=== PATIENT | female | born 1930 | race Caucasian/White ===

== ENCOUNTER 2020-04-13 19:35 | Emergency (ER) | payer MEDICARE, OTHER ==
[2020-04-13] MEDS ORDERED: NORMAL SALINE 1000 ML 1,000 ML IV ONE (20:56)
--- NOTE | 2020-04-13 21:00 | EKG REPORT ---
SEVERITY:- NORMAL ECG - SINUS RHYTHM : Confirmed by: Usman Gary MD 13-Apr-2020 20:59:19
--- NOTE | 2020-04-13 21:02 | ER Document Report ---
ED Fall - General Chief Complaint: Fall Injury Stated Complaint: BUTTOCK PAIN Time Seen by Provider: 04/13/20 20:30 Mode of Arrival: Medic Information source: Patient, Relative - Daughter Notes: 89-year-old female patient who lives home alone presenting to the emergency department after having recurrent falls. Patient's daughter reports she is fallen every day for the last 4 days. She reports over the last 2 weeks she has had increasing confusion and has had hallucinations. Patient denies any of this. Patient is alert and oriented x4. Patient does endorse falls but states that she has a history of severe vertigo secondary to a stroke and has dizzy spells where she knows she is about to fall and then falls. She is followed by a physician at [facility] in [place]. Patient denies any cough, congestion, fever, chills, nausea, vomiting diarrhea. She is complaining of bilateral hip pain and pain in the low back near her coccyx. Patient ambulates at home independently and occasionally uses a cane. - Related data Allergies/Adverse Reactions: No Known Allergies Allergy (Unverified 04/13/20 19:45) Past Medical History - General Information source: Patient, Relative - Daughter - Social History Smoking Status: Never Smoker Chew tobacco use (# tins/day): No Frequency of alcohol use: None Drug Abuse: None Family History: Reviewed & Not Pertinent Patient has homicidal ideation: No - Past Medical History Cardiac Medical History: Reports: Hx Atrial Fibrillation EENT Medical History: Reports: Other - vertigo Review of Systems - Review of Systems Musculoskeletal: See HPI Neurological/Psychological: Confusion - per daughter, Hallucinations - per daughter, Headaches Physical Exam - Vital signs Vitals: Resp BP Pulse Ox 19 138/68 H 93 04/13/20 19:56 04/13/20 19:56 04/13/20 19:56 - Notes Notes: PHYSICAL EXAMINATION: GENERAL: Appears to be stated age, no acute distress noted. HEAD: Atraumatic, normocephalic. EYES: Pupils equal round and reactive to light, extraocular movements intact, conjunctiva are normal. ENT: Nares patent, oropharynx clear without exudates. Moist mucous membranes. NECK: Normal range of motion, supple without lymphadenopathy LUNGS: Breath sounds clear to auscultation bilaterally and equal. No wheezes rales or rhonchi. HEART: Regular rate and rhythm without murmurs ABDOMEN: Soft, nontender, nondistended abdomen. No guarding, no rebound. No masses appreciated. Female : No CVA tenderness Musculoskeletal: Normal range of motion, no pitting or edema. No cyanosis. Pelvis appears stable, no pain with palpation. NEUROLOGICAL: Cranial nerves grossly intact. Normal speech. Normal sensory, motor exams PSYCH: Normal mood, normal affect. SKIN: Warm, Dry, normal turgor, no rashes or lesions noted. Course - Re-evaluation Re-evalutation: Patient appears well, nontoxic. She is alert, oriented and answering all questions appropriately. Her imaging work-up today has been unremarkable. Labs and urine reassuring. We attempted to have her walk around the emergency department prior to discharge. The patient declined to do this stating that she knows her knees will give out and she will fall. Her daughter is at the bedside providing history. Her daughter states that she is not safe at home anymore, she has had recurrent falls over the last 4 days. Her daughter further states that she has been having hallucinations of people in her home that are not there. She also apparently has a firearm in the home and has threatened to shoot people. Patient denies any suicidal or homicidal ideations. She is medically cleared at this time. Since patient is unable to get up and ambulate around the room we will hold her here as a social hold, we will have her be seen by social work and mental health to evaluate for these apparent hallucinations and also to assess if there are any social or discharge needs such as home health versus placement. Patient is agreeable to stay in the emergency department to see the vacation planner tomorrow. - Vital Signs Vital signs: Temp Pulse Resp BP Pulse Ox 98.3 F 15 145/85 H 94 04/13/20 20:31 04/13/20 23:00 04/13/20 21:01 04/13/20 23:00 - Laboratory Result Diagrams: 04/13/20 20:05 04/13/20 20:05 Laboratory results interpreted by me: 04/13/20 04/13/20 04/13/20 20:05 20:05 21:05 RDW 16.3 H Lymph % (Auto) 10.1 L Seg Neutrophils % 78.2 H BUN 22 H Creatinine 1.26 H Est GFR ( Amer) 48 L Est GFR (MDRD) Non-Af 40 L Total Protein 5.8 L Albumin 3.3 L Urine Protein 100 H Urine Glucose (UA) 50 H Urine Ketones 20 H Urine Blood SMALL H Urine Bilirubin SMALL H Urine Urobilinogen 4.0 H Discharge - Discharge Clinical Impression: Recurrent falls while walking, Dizziness Condition: Stable Disposition: HOME, SELF-CARE
[2020-04-13 21:10] LABS: ABSOLUTE BASOPHILS # (AUTO) 0.1 10^3/uL (0.0-0.2); ABSOLUTE EOSINOPHILS # (AUTO) 0.1 10^3/uL (0.0-0.6); ABSOLUTE LYMPHOCYTES (AUTO) 0.9 10^3/uL (0.5-4.7); ABSOLUTE MONOCYTES (AUTO) 0.9 10^3/uL (0.1-1.4); BASOPHILS % (AUTO) 0.7 % (0-2); HEMATOCRIT 39.1 % (36.0-47.0); HEMOGLOBIN 12.8 g/dL (12.0-15.5); LYMPHOCYTES % (AUTO) 10.1 % (13-45); MEAN CORPUSCULAR HEMOGLOBIN 27.1 pg (27.0-33.4); MEAN CORPUSCULAR HGB CONC 32.8 g/dL (32.0-36.0); MEAN CORPUSCULAR VOLUME 83 fl (80-97); PLATELET COUNT 155 10^3/uL (150-450); RED BLOOD COUNT 4.73 10^6/uL (3.72-5.28); RED CELL DISTRIBUTION WIDTH 16.3 % (11.5-14.0); SEGMENTED NEUTROPHILS % (AUTO) 78.2 % (42-78); TOTAL CELLS COUNTED % (AUTO) 100 %; WHITE BLOOD COUNT 8.9 10^3/uL (4.0-10.5)
[2020-04-13 21:12] LABS: ALBUMIN 3.3 g/dL (3.5-5.0); ALKALINE PHOSPHATASE 78 U/L (38-126); ANION GAP 5 (5-19); ASPARTATE AMINO TRANSFERASE 20 U/L (14-36); BILIRUBIN,DIRECT 0.1 mg/dL (0.0-0.4); BILIRUBIN,TOTAL 0.9 mg/dL (0.2-1.3); BLOOD UREA NITROGEN 22 mg/dL (7-20); CALCIUM 8.8 mg/dL (8.4-10.2); CARBON DIOXIDE 26 mmol/L (22-30); CHLORIDE 106 mmol/L (98-107); GLUCOSE 109 mg/dL (75-110); POTASSIUM 4.1 mmol/L (3.6-5.0); TOTAL PROTEIN 5.8 g/dL (6.3-8.2)
[2020-04-13 21:18] LABS: APPEARANCE,URINE SLIGHTLY-CLOUDY; BILIRUBIN,URINE SMALL (NEGATIVE); COLOR,URINE AMBER; GLUCOSE, URINE 50 mg/dL (NEGATIVE); KETONES,URINE 20 mg/dL (NEGATIVE); LEUKOCYTE ESTERASE,URINE NEGATIVE (NEGATIVE); NITRITE,URINE NEGATIVE (NEGATIVE); PROTEIN,URINE 100 mg/dL (NEGATIVE); URINE SPECIFIC GRAVITY 1.028
--- NOTE | 2020-04-13 21:35 | RADIOLOGY REPORT (SQ) ---
EXAM DESCRIPTION: CT HEAD WITHOUT IV CONTRAST, CT CERVICAL SPINE WITHOUT IV CONTRAST COMPLETED DATE/TME: 04/13/2020 21:00 CLINICAL HISTORY: 89 years, Female, fall This exam was performed according to our departmental dose-optimization program which includes automated exposure control, adjustment of the mA and/or kVp according to patient size and/or use of iterative reconstruction technique where applicable. FINDINGS: No acute intracranial hemorrhage, mass effect or midline shift. No extra-axial fluid collections. Mild patchy hypodense areas in periventricular white matter both cerebral hemispheres consistent with chronic small vessel ischemic changes. The visualized paranasal sinuses and the mastoid air cells are clear. The skull is intact. Vertebral body heights are intact. Alignment is intact. Mild diffuse degenerative changes. No significant prevertebral soft tissue swelling. Mild uncovertebral hypertrophy throughout the cervical spine. No significant prevertebral soft tissue swelling. The odontoid process is intact. Moderate C1-2 degenerative changes. IMPRESSION: No acute intracranial hemorrhage. Moderate degenerative changes. No cervical spine fracture or subluxation.
--- NOTE | 2020-04-13 21:46 | RADIOLOGY REPORT (SQ) ---
XR PELVIS HISTORY: Fall, bilateral hip pain. COMPARISON: None. FINDINGS: The hip joints, sacroiliac joints, and pubic symphysis are intact. Bowel gas obscures portions of the sacrum which limits evaluation. The visualized lower lumbar spine is intact. Generalized osteopenia is present. IMPRESSION: No acute findings are seen. However, please note that the generalized osteopenia limits evaluation for subtle or nondisplaced fractures. Consider cross-sectional imaging if there is high clinical concern or point tenderness.
--- NOTE | 2020-04-13 23:08 | RADIOLOGY REPORT (SQ) ---
EXAM DESCRIPTION: CT PELVIS WITHOUT IV CONTRAST COMPLETED DATE/TME: 04/13/2020 22:00 CLINICAL HISTORY: 89 years, Female, pain s/p fall COMPARISON: Plain films 04/13/2020 TECHNIQUE: 436 Images stored on PACS. All CT scanners at this facility use dose modulation, iterative reconstruction, and/or weight based dosing when appropriate to reduce radiation dose to as low as reasonably achievable (ALARA). [facility]: Dose Right [facility]: CareDose [facility]: Dose Right [facility]: Teradose 4D [facility]: Leapforce LIMITATIONS: None. FINDINGS: Limited evaluation of intrapelvic structures shows extensive sigmoid diverticulosis without CT evidence for diverticulitis. No free fluid or free air in the pelvis. Large amount of stool in the rectal vault. Degenerative changes of the lower lumbar spine. Negative for acute fracture or dislocation. Vascular calcifications. Degenerative changes of the hips bilaterally. IMPRESSION: No acute osseous abnormality TECHNICAL DOCUMENTATION: Quality ID # [id number]: Final reports with documentation of one or more dose reduction techniques (e.g., Automated exposure control, adjustment of the mA and/or kV according to patient size, use of iterative reconstruction technique) copyright 2011 [employer]- All Rights Reserved
--- NOTE | 2020-04-14 12:11 | ER Document Report ---
Doctor's Note Notes: 04/14/20 12:09 I reassessed patient just now. She is resting comfortably in the bed with no significant complaints. She has had a consultation from social work/discharge planning. A home health visit as well as social work visit has been planned for the patient. She declines assisted living or permanent placement at this time. I did discuss this plan of care with the daughter on the phone. She was in agreement. At this time patient is obviously at risk of going home and falling however patient states she understands this and still wants to go home. Patient is adamant that she does not want placed. Daughter states she understands and that her mom is been adamant about not wanting to be placed for a while. She states she is concerned but respects her mom's desire to try to remain independent. I have instructed the daughter to have her mother evaluated with a primary care physician for possible early dementia. I explained that this would give the family more options in terms of services available.
--- NOTE | 2020-04-14 12:45 | PSYCHOLOGICAL NOTE ---
Psych Note - Psych Note Date seen by psych provider: 04/14/20 Time seen by psych provider: 10:30 Psych Note: Reason for Consult: Hallucinations Patient discloses that her son before [place]. She reports that she then took her daughter to the asbestos coverer to have her well redrawn (ie remove son that and place daughter as primary). She discloses that since then she feels that her daughter has been controlling. She states that her daughter has taken good care of her however wants to control money. Patient discloses repairs that she had to do in the home and is frustrated that her daughter and son-in-law have opinions and feel their way is the way it needs to be. She continue report that now her daughter has been stating that she is "crazy." She states it all started when she noticed that her vacuum looked different. She states is not even the same color and is missing part but is the same brand. She continues to report that her daughter wants her (the patient) to live in a usp and she does not want to live anywhere about her own home. She continued to disclose that she was having difficulty with people coming into the home at night making noise so she could not sleep. She reports that her daughter must have allowed them to come in and they would watch TV, play music, or talk so she would hear murmuring all night and could not sleep. She states it was a woman, man and a few children. She states the children even jumped on her bed. She disclosed she believes her daughter hired them to help around the yard but she does not understand why they were allowed to stay inside the house. She states she has not seen them in about a week but that they were at the house for a "few weeks." She denies ever having difficulties during the day and confirms she did not see them during the day. She reports her daughter called someone that came to the house to do an evaluation and that hurt her feelings. She denies any history of mental health, depression or anxiety. Patient is alert and orientated to person, place time and circumstance. Mood is euthymic with congruent affect. Patient denies suicidal land homicidal ideation. Patient currently is not demonstrating any behaviours of responding to internal stimuli. She does provide report of visual, auditory and tactical hallucinations about a week ago. Patient is paranoid about stage of life changes, relationship changes with daughter (ie parent/child attendant) and loss of memory. Thought processes is organized, linear and logical. Eye contact is well maintained. Conversational speech is within normal rate, tone and prosody. She is very verbose and enjoys taking time to speak with clinician. Intellectual abilities appear to be within the average range. Attention and concentration are currently good. Insight, judgment, impulse control is fair. Clinical presentation: Stage of life Impression/Plan: Patient is cleared from acute psychiatric services. She discloses experiences about a week ago that are probable hallucinations ie p eople coming into her home at night watching TV listening to music and children jumping on her bed. This has not happened the last few days. Patient is not currently responding to internal stimuli. Patient discloses frustration and difficulty with stage of life and states she does not like being treated like a child or told what to do by her daughter. There is currently an open APS case for the patient. Dr. Lloyd was consulted on the care and management of this patient; attending physician is in agreement with recommendations and disposition.
[2020-04-14 13:32] VITALS: BP 133/55
== END 2020-04-14 13:32 | disposition home or self-care (01) ==
LOC: ER 19:35
DX: R29.6 Repeated falls (principal); I69.398 Other sequelae of cerebral infarction; R42 Dizziness and giddiness; M25.551 Pain in right hip; M25.552 Pain in left hip; M54.5 Low back pain; R41.0 Disorientation, unspecified; R51 Headache; R44.3 Hallucinations, unspecified; Z63.4 Disappearance and death of family member
CPT/HCPCS: 93005; 99285; 96360; 51701; 36415; 87086; 82962; 83735; 85025; 80053; 81001; 72170; 70450; 72125; 72192; 93010; J7030

== ENCOUNTER 2020-04-16 15:08 | Emergency (ER) | payer MEDICARE, OTHER ==
[2020-04-16] MEDS ORDERED: NORMAL SALINE 1000 ML 1,000 ML IV ONE (16:47)
--- NOTE | 2020-04-16 17:03 | ER Document Report ---
ED General <ANDRE CHEEK J - Last Filed: 04/18/20 15:28> <ROBINA SANCHEZ - Last Filed: 04/20/20 18:22> - General Chief Complaint: Altered Mental Status Stated Complaint: BEHAVIORAL ISSUES Time Seen by Provider: 04/16/20 15:15 - HPI Notes: Chief complaint: Confusion History of present illness: 89-year-old female was seen here and worked up extensively 48 hours ago for altered mental status which was ultimately attributed to probable dementia dementia. She had no acute changes on head CT or chest x-ray and had normal CBC, urinalysis and metabolic profile. aquacultural worker supervisor spent time with patient and her daughter and they tried to make arrangements for her to go to a detention but the patient was adamantly opposed to this. It was ultimately agreed that she would go home by herself with visits from home health nursing agency. When the home health nurse came in today she found patient in the backyard in an acute confusional state reporting that she was trying to find some children she was supposed to be taking care of. Patient is clearly unable to take care of herself and home health nurse called EMS to transport her back here. Otherwise no other new symptoms.. (ROBINA SANCHEZ) - Related Data Allergies/Adverse Reactions: No Known Allergies Allergy (Verified 04/18/20 10:30) Past Medical History - General Information source: Patient, [facility] Records - Social History Smoking Status: Never Smoker Chew tobacco use (# tins/day): No Frequency of alcohol use: None Drug Abuse: None Family History: Reviewed & Not Pertinent Patient has homicidal ideation: No - Past Medical History Cardiac Medical History: Reports: Hx Atrial Fibrillation Neurological Medical History: Reports: Hx Cerebrovascular Accident, Other - Chronic/recurrent vertigo <ROBINA SANCHEZ - Last Filed: 04/20/20 18:22> Review of Systems <ROBINA SANCHEZ - Last Filed: 04/20/20 18:22> - Review of Systems Notes: Constitutional: Negative for fever. HENT: Negative for sore throat. Eyes: Negative for visual changes. Cardiovascular: Negative for chest pain. Respiratory: Negative for shortness of breath. Gastrointestinal: Negative for abdominal pain, vomiting or diarrhea. Genitourinary: Negative for dysuria. Musculoskeletal: Negative for back pain. Skin: Negative for rash. Neurological: Negative for headaches, weakness or numbness. 10 point ROS negative except as marked above and in HPI. (ROBINA SANCHEZ) Physical Exam <ROBINA SANCHEZ - Last Filed: 04/20/20 18:22> - Vital signs Vitals: Temp 98.2 F 04/16/20 15:09 - Notes Notes: GENERAL: Somewhat unkempt elderly female who is obviously confabulating and mildly anxious. SKIN: Good turgor no rashes. HEAD: Normocephalic atraumatic. EYES: PERRLA. EOMI. Conjunctivae and sclerae clear. EARS: CANALS AND TMS CLEAR. NOSE: CLEAR. MOUTH: Moist mucosa. Good dentition. No stridor or edema. No drooling. NECK: Supple. No masses or thyromegaly. No adenopathy. Carotids 2+ without bruits. No JVD. BACK: Symmetrical without tenderness. CHEST: Respirations unlabored. Breath sounds clear and symmetrical. HEART: Regular rhythm. No murmur gallop or rub. ABDOMEN: Soft nontender without masses, organomegaly or rebound. Bowel sounds normally active. No bruits. GENITALIA: Deferred. EXTREMITIES: Moderate degenerative changes of interphalangeal joints of both hands. No edema. No calf tenderness. Cap refill less than 1.5 seconds. Dorsalis pedis and posterior tibial pulses 3+ and symmetrical. NEUROLOGICAL: GCS 14. Alert alert but confabulating and disoriented to time although she is oriented to place and person. Mildly unsteady gait using a quad cane. Fluent speech. Cranial nerves II through XII intact. Sensorimotor and cerebellar normal. Normal tone. PSYCHIATRIC: Anxious affect. (ROBINA SANCHEZ) Course - Laboratory Result Diagrams: 04/16/20 17:36 04/16/20 17:36 <ANDRE CHEEK - Last Filed: 04/18/20 15:28> - Laboratory Result Diagrams: 04/20/20 10:16 04/20/20 10:16 - Diagnostic Test Radiology reviewed: Reports reviewed - Chest x-ray per radiologist: Hiatal hernia present. <ROBINA SANCHEZ - Last Filed: 04/20/20 18:22> - Re-evaluation Re-evalutation: 04/18/20 15:28 Providers note No new complaints. Vital signs are stable renewed daily medications that have reconciled and confirmed. Pending placement (ANDRE CHEEK) 04/16/20 19:29 This is an elderly lady who is confabulating, delusional and experiencing some hallucinations where she is seeing children in her backyard and people wandering through her house. She is been worked up extensively between prior visit 2 days ago and today's visit. We are basically not finding any organic reason for her altered mental status and this appears to have been something that has evolved slowly over an extended period of time per family members. Is felt that this lady has progressive dementia. She is been living by herself and clearly is at the point where she can no longer care for self. I do not see any medical reason for her to be admitted to an inpatient service at this time. Social work/discharge planning is very familiar with his case and they have spoken again with her daughter today. They are in process of trying to get an emergency court order to vernon power of rad technologist to the daughter so that this lady may be admitted to a detention. She will remain on social hold in the emergency department at this time. 04/17/20 15:50 aquacultural worker supervisor has still not been able to find placement for this patient. Daughter is working on additional assistance to try to keep patient at home. Suitable arrangements are still not in place and patient is not safe to be discharged at this time. We did get an MRI of the brain which shows some scattered old infarcts with no other acute process. Patient is afebrile eating and drinking well and her vital signs are good. She continues to confabulate mildly and has been trying to get up and wander some at night. She responds well to low-dose Haldol. We will continue to administer some Haldol at bedtime for her. She will remain on social hold status in the emergency department as daughter attempts to arrange for some home care services and also for an outpatient neuropsychiatric evaluation. 04/20/20 18:20 kitchen worker has advised me that Ms. Aguila has appointment scheduled for tomorrow for outpatient neuropsychiatric evaluation. They have also made arrangements for home health services. She will be discharged sometime after 11 AM tomorrow. Her condition remains medically stable. (ROBINA SANCHEZ) - Vital Signs Vital signs: Temp Pulse Resp BP Pulse Ox 98.4 F 70 16 150/72 H 97 04/20/20 17:06 04/20/20 17:06 04/20/20 17:06 04/20/20 17:06 04/20/20 17:06 - Laboratory Laboratory results interpreted by me: 04/16/20 04/16/20 04/16/20 17:17 17:36 17:36 Hgb Hct RDW 16.6 H Lymph % (Auto) 10.5 L Seg Neutrophils % 80.3 H Chloride 110 H Anion Gap 3 L Est GFR ( Amer) 50 L Est GFR (MDRD) Non-Af 41 L Glucose Ammonia Total Protein 6.0 L Albumin 3.4 L Urine Protein 30 H Urine Glucose (UA) 50 H Urine Urobilinogen 4.0 H Salicylates < 1.0 L 04/16/20 04/20/20 04/20/20 18:38 10:16 10:16 Hgb 11.7 L Hct 35.7 L RDW 16.2 H Lymph % (Auto) Seg Neutrophils % Chloride 108 H Anion Gap 3 L Est GFR ( Amer) 51 L Est GFR (MDRD) Non-Af 42 L Glucose 117 H Ammonia < 8.7 L Total Protein Albumin Urine Protein Urine Glucose (UA) Urine Urobilinogen Salicylates - EKG Interpretation by Me Additional EKG results interpreted by me: 04/16/20 17:38 Twelve-lead EKG from 1722 hrs. reviewed contemporaneously by me demonstrating a normal sinus rhythm rate of 75 normal QRS axis of +35 degrees and normal in tervals. There are some nonspecific T wave changes present and the overall appearance of the tracing is grossly unchanged from prior study of 04/13/2020. Indication for current study: Altered mental status. (ROBINA SANCHEZ) Discharge <ANDRE CHEEK - Last Filed: 04/18/20 15:28> <ROBINA SANCHEZ - Last Filed: 04/20/20 18:22> - Discharge Clinical Impression: Dementia Qualifiers: Dementia type: unspecified type Dementia behavioral disturbance: with behavioral disturbance Qualified Code(s): F03.91 - Unspecified dementia with behavioral disturbance Condition: Stable Disposition: HOME, SELF-CARE Additional Instructions: Go to your neuropsychiatry appointment today and you will thereafter return home with home health services provided. You may return to the emergency department as needed. Follow-up with your primary care doctor within the next 3 to 5 days.
--- NOTE | 2020-04-16 17:38 | RADIOLOGY REPORT (SQ) ---
EXAM DESCRIPTION: CHEST SINGLE VIEW IMAGES COMPLETED DATE/TIME: 04/16/2020 5:28 pm REASON FOR STUDY: AMS COMPARISON: None. EXAM PARAMETERS: NUMBER OF VIEWS: One view. TECHNIQUE: Single frontal radiographic view of the chest acquired. RADIATION DOSE: NA LIMITATIONS: None. FINDINGS: LUNGS AND PLEURA: No opacities, masses or pneumothorax. No pleural effusion. MEDIASTINUM AND HILAR STRUCTURES: Large hiatal hernia. HEART AND VASCULAR STRUCTURES: Heart normal in size. Normal vasculature. BONES: No acute findings. HARDWARE: None in the chest. OTHER: No other significant finding. IMPRESSION: Hiatal hernia. No acute cardiopulmonary findings. TECHNICAL DOCUMENTATION: JOB ID: [id number] 2010 [employer]- All Rights Reserved Reading location - IP/workstation name: [email or web address]
[2020-04-16 18:02] LABS: ABSOLUTE LYMPHOCYTES (AUTO) 0.7 10^3/uL (0.5-4.7); ABSOLUTE MONOCYTES (AUTO) 0.5 10^3/uL (0.1-1.4); ABSOLUTE NEUT (AUTO) 5.3 10^3/uL (1.7-8.2); BASOPHILS % (AUTO) 0.7 % (0-2); EOSINOPHILS % (AUTO) 0.4 % (0-6); HEMATOCRIT 37.7 % (36.0-47.0); HEMOGLOBIN 12.2 g/dL (12.0-15.5); LYMPHOCYTES % (AUTO) 10.5 % (13-45); MEAN CORPUSCULAR HGB CONC 32.2 g/dL (32.0-36.0); MEAN CORPUSCULAR VOLUME 84 fl (80-97); MONOCYTES % (AUTO) 8.1 % (3-13); PLATELET COUNT 176 10^3/uL (150-450); RED CELL DISTRIBUTION WIDTH 16.6 % (11.5-14.0); SEGMENTED NEUTROPHILS % (AUTO) 80.3 % (42-78); TOTAL CELLS COUNTED % (AUTO) 100 %; WHITE BLOOD COUNT 6.7 10^3/uL (4.0-10.5)
[2020-04-16 18:16] LABS: ALBUMIN 3.4 g/dL (3.5-5.0); ALKALINE PHOSPHATASE 92 U/L (38-126); ASPARTATE AMINO TRANSFERASE 23 U/L (14-36); BILIRUBIN,TOTAL 0.4 mg/dL (0.2-1.3); BLOOD UREA NITROGEN 20 mg/dL (7-20); CALCIUM 9.1 mg/dL (8.4-10.2); CHLORIDE 110 mmol/L (98-107); GLUCOSE 106 mg/dL (75-110); POTASSIUM 4.8 mmol/L (3.6-5.0)
[2020-04-16 18:17] LABS: ALCOHOL < 10 mg/dL (NONE DETECTED); SALICYLATE < 1.0 mg/dL (2.0-20.0)
[2020-04-16 18:21] LABS: CARBON DIOXIDE 26 mmol/L (22-30)
[2020-04-16 18:22] LABS: ANION GAP 3 (5-19)
[2020-04-16 18:24] LABS: URINE AMPHETAMINES SCREEN NEGATIVE; URINE BARBITURATES SCREEN NEGATIVE; URINE BENZODIAZEPINES SCREEN NEGATIVE; URINE COCAINE SCREEN NEGATIVE; URINE MARIJUANA (THC) SCREEN NEGATIVE; URINE METHADONE SCREEN NEGATIVE; URINE PHENCYCLIDINE SCREEN NEGATIVE
[2020-04-16 19:13] LABS: APPEARANCE,URINE SLIGHTLY-CLOUDY; BILIRUBIN,URINE NEGATIVE (NEGATIVE); CALCIUM OXALATE CRYSTALS,URINE MANY /HPF; COLOR,URINE YELLOW; GLUCOSE, URINE 50 mg/dL (NEGATIVE); KETONES,URINE NEGATIVE (NEGATIVE); PROTEIN,URINE 30 mg/dL (NEGATIVE)
[2020-04-16] MEDS ORDERED: HALOPERIDOL 2 MG TABLET PO ONE (19:28)
--- NOTE | 2020-04-17 01:07 | EKG REPORT ---
SEVERITY:- ABNORMAL ECG - SINUS RHYTHM NONSPECIFIC T ABNORMALITIES, ANT-LAT LEADS : Confirmed by: Raymon Tuttle 17-Apr-2020 01:06:18
[2020-04-17] MEDS ORDERED: HALOPERIDOL 2 MG TABLET PO ONE (01:59)
--- NOTE | 2020-04-17 09:59 | ER Document Report ---
Doctor's Note Notes: 04/17/20 09:57 ED provider note morning rounds. Patient showing no signs of distress at this time patient voices no new complaints. States all of her needs are met at this moment in time. Vital signs stable. Patient has dementia and is unable to care for herself at home therefore was placed in the emergency department for a disposition to a residential facility for elderly. Pending social services technician case management plans.
--- NOTE | 2020-04-17 14:32 | RADIOLOGY REPORT (SQ) ---
EXAM DESCRIPTION: MRI HEAD WITHOUT IMAGES COMPLETED DATE/TIME: 04/17/2020 2:21 pm REASON FOR STUDY: altered mental status in elderly COMPARISON: CT dated 04/13/2020. TECHNIQUE: Multiplanar imaging includes non-contrasted T1, T2, FLAIR, and diffusion with ADC map seq uences. Images stored on PACS. LIMITATIONS: None. FINDINGS: ANATOMY: No anomalies. Normal vascular flow voids. Pituitary fossa normal. CSF SPACES: Atrophy induced prominence of ventricles and CSF spaces. CEREBRUM: High signal intensity lesions scattered throughout the white matter on FLAIR imaging with d istribution suggesting micro-vascular ischemic changes. No evidence of hemorrhage, mass, or extraaxi al fluid collection. 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 No hemorrhage. No edema, masses or ma ss effect. Internal auditory canals, cerebello-pontine angles, mastoids normal. DIFFUSION IMAGING: Negative for acute or sub-acute infarction. ORBITS: No masses. Globes normal. PARANASAL SINUSES: No fluid levels. Mucosa normal. OTHER: No other significant finding. IMPRESSION: ATROPHY AND CHRONIC MICRO-VASCULAR ISCHEMIC CHANGES. 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 NO ACUTE FINDINGS. EVIDENCE OF ACUTE STROKE: NO. TECHNICAL DOCUMENTATION: JOB ID: [id number] [employer]- All Rights Reserved Reading location - IP/workstation name: [email or web address]
[2020-04-17] MEDS ORDERED: HALOPERIDOL 2 MG TABLET PO SCH (22:00)
[2020-04-18] MEDS ORDERED: MECLIZINE HCL 25 MG TABLET PO ONE (09:44)
[2020-04-19] MEDS ORDERED: HALOPERIDOL 2 MG TABLET PO ONE (03:18)
[2020-04-19] MEDS ORDERED: HALOPERIDOL LACTATE INJ 5 MG/1 ML VIAL IM ONE (03:39)
--- NOTE | 2020-04-19 17:08 | ER Document Report ---
Doctor's Note Notes: 04/19/20 17:06 Patient resting comfortably at this time stating there is no pain or distress and no problems at this time. Apparently patient fell while in the bathroom earlier today nurses were immediately present there was no reported loss of consciousness or any kind of bony injuries patient was able to stand up and pi vot and get back into her gurney without showing any discomfort. Patient's vital signs are stable plan pending placement; BP on a social hold at this time.
--- NOTE | 2020-04-19 23:31 | RADIOLOGY REPORT (SQ) ---
CT of the head: 04/19/2020 10:29 PM CDT HISTORY: 89-year-old patient with dementia, fall. COMPARISON: CT the head from 04/13/2020 TECHNIQUE: Multiple axial contiguous images were obtained through the head without intravenous contrast administered. This exam was performed according to our departmental dose-optimization program, which includes automated exposure control, adjustment of the mA and/or KV according to the patient's size and/or use of iterative reconstruction technique. FINDINGS: The ventricles and cerebral sulci demonstrate mild prominence, consistent with cerebral atrophy. There are mild periventricular hypodensities, suggestive of periventricular white matter changes. The castellano-white matter differentiation is within normal limits. Both orbits appear unremarkable. The mastoid air cells appear clear. There is partial opacification of the sphenoid and left ethmoid sinuses. This is similar to prior imaging. The calvarium is intact. No extra-axial fluid collection is seen. No midline shift or mass effect is apparent. There are no findings to suggest acute intracranial hemorrhage. IMPRESSION: 1. No acute intracranial hemorrhage is seen. 2. Mild cerebral atrophy and periventricular white matter changes are seen.
--- NOTE | 2020-04-19 23:58 | ER Document Report ---
Doctor's Note Notes: 04/19/20 23:54 Patient turned over to me pending placement for dementia no longer able to live at home. Prior to return over to me was reported that patient had a fall earlier in the day where PCT was outside the bathroom and heard patient screaming and patient said that she slipped and patient was on floor. There was no sign of trauma as per notes regarding this incident. I ordered a CT head because patient would be unable to reliably report symptoms of an intracranial bleed associated with this event and it was negative. Patient continues to be asymptomatic and resting comfortably.
[2020-04-20 10:38] LABS: ABSOLUTE EOSINOPHILS # (AUTO) 0.2 10^3/uL (0.0-0.6); ABSOLUTE LYMPHOCYTES (AUTO) 1.1 10^3/uL (0.5-4.7); ABSOLUTE MONOCYTES (AUTO) 0.5 10^3/uL (0.1-1.4); ABSOLUTE NEUT (AUTO) 3.4 10^3/uL (1.7-8.2); BASOPHILS % (AUTO) 0.9 % (0-2); EOSINOPHILS % (AUTO) 3.1 % (0-6); HEMATOCRIT 35.7 % (36.0-47.0); HEMOGLOBIN 11.7 g/dL (12.0-15.5); LYMPHOCYTES % (AUTO) 20.7 % (13-45); MEAN CORPUSCULAR HEMOGLOBIN 27.3 pg (27.0-33.4); MEAN CORPUSCULAR HGB CONC 32.7 g/dL (32.0-36.0); MEAN CORPUSCULAR VOLUME 84 fl (80-97); MONOCYTES % (AUTO) 10.3 % (3-13); PLATELET COUNT 180 10^3/uL (150-450); RED BLOOD COUNT 4.28 10^6/uL (3.72-5.28); RED CELL DISTRIBUTION WIDTH 16.2 % (11.5-14.0); TOTAL CELLS COUNTED % (AUTO) 100 %; WHITE BLOOD COUNT 5.2 10^3/uL (4.0-10.5)
--- NOTE | 2020-04-20 10:53 | RADIOLOGY REPORT (SQ) ---
EXAM DESCRIPTION: KNEE BILATERAL 1-2 VIEWS IMAGES COMPLETED DATE/TIME: 04/20/2020 10:43 am REASON FOR STUDY: fall/pain R41.82 ALTERED MENTAL STATUS, UNSPECIFIED F03.91 UNSPECIFIED DEMENTIA WITH BEHAVIORAL DISTURBANCE COMPARISON: None. NUMBER OF VIEWS: Two views. TECHNIQUE: AP and lateral radiographic images acquired of the right and left knee. LIMITATIONS: None. FINDINGS: MINERALIZATION: Normal. BONES: No acute fracture or dislocation. No worrisome bone lesions. No significant osteophytes. JOINT: Joint space narrowing in the medial and lateral compartments bilaterally. There is joint spac e narrowing in the right and left patellofemoral compartments. OTHER: No other significant finding. IMPRESSION: Bilateral tricompartmental osteoarthritis. Changes slightly greater on the right than t he left. TECHNICAL DOCUMENTATION: JOB ID: [id number] 2010 [employer]- All Rights Reserved Reading location - IP/workstation name: [email or web address]
--- NOTE | 2020-04-20 10:54 | RADIOLOGY REPORT (SQ) ---
EXAM DESCRIPTION: PELVIS AP IMAGES COMPLETED DATE/TIME: 04/20/2020 10:43 am REASON FOR STUDY: fall/pain bilat hips R41.82 ALTERED MENTAL STATUS, UNSPECIFIED F03.91 UNSPECIFIE D DEMENTIA WITH BEHAVIORAL DISTURBANCE COMPARISON: 04/13/2020 NUMBER OF VIEWS: One view TECHNIQUE: AP Pelvis LIMITATIONS: None. FINDINGS: MINERALIZATION: Normal. HIPS: No acute fracture or dislocation. No worrisome bone lesions. PELVIS AND SACRUM: No acute fracture or dislocation. No worrisome bone lesions. PUBIS AND ISCHIUM: No acute fracture. LOWER LUMBAR SPINE: No significant findings as visualized. SOFT TISSUES: No findings. OTHER: No other significant finding. IMPRESSION: NEGATIVE STUDY OF THE PELVIS. COMMENT: Pelvic fractures are often occult on plain radiographs. If strong clinical suspicion for f racture, recommend CT or MR. TECHNICAL DOCUMENTATION: JOB ID: [id number] 2010 [employer]- All Rights Reserved Reading location - IP/workstation name: [email or web address]
[2020-04-20 10:59] LABS: BLOOD UREA NITROGEN 20 mg/dL (7-20); CALCIUM 8.8 mg/dL (8.4-10.2); CARBON DIOXIDE 28 mmol/L (22-30); GLUCOSE 117 mg/dL (75-110); POTASSIUM 4.1 mmol/L (3.6-5.0)
[2020-04-20 11:05] LABS: CHLORIDE 108 mmol/L (98-107)
[2020-04-20 11:13] LABS: ANION GAP 3 (5-19)
[2020-04-21 10:41] VITALS: BP 137/56
== END 2020-04-21 11:22 | disposition home or self-care (01) ==
LOC: ER 15:08
DX: F03.91 Unspecified dementia, unspecified severity, with behavioral disturbance (principal); M17.0 Bilateral primary osteoarthritis of knee; K44.9 Diaphragmatic hernia without obstruction or gangrene; Z86.73 Personal history of transient ischemic attack (TIA), and cerebral infarction without residual deficits; Z75.1 Person awaiting admission to adequate facility elsewhere; Z60.2 Problems related to living alone
CPT/HCPCS: 93005; 99285; 96372; 96360; 96361; 36415; 80307 ×3; 82140; 83735; 85025; 80053; 80048; 81001; 71045; 93010; J1630; A9270; J7030